=== PATIENT | male | born 1990 | race African-American/Black ===

== ENCOUNTER 2017-07-21 16:15 | Emergency (ER) | payer OTHER ==
[~2017-07-21] VITALS: Ht 152.4 cm; Wt 46.0 kg
[~2017-07-21 16:15] MED LIST: CLONIDINE; FLUVOXAMINE; LAMOTRIGINE
[2017-07-21] MEDS ORDERED: TETANUS, DIPHTHERIA, PERTUSSIS VAC/PF 0.5ML (>7YR OLD) IM ONE (19:00)
[2017-07-21 23:00] VITALS: BP 116/63
== END 2017-07-21 23:09 | disposition home or self-care (01) ==
LOC: ER 16:41
DX: S53.124A Posterior dislocation of right ulnohumeral joint, initial encounter (principal); J45.909 Unspecified asthma, uncomplicated; F72 Severe intellectual disabilities; G40.909 Epilepsy, unspecified, not intractable, without status epilepticus; Z88.0 Allergy status to penicillin; X58.XXXA Exposure to other specified factors, initial encounter; Y93.89 Activity, other specified; Y92.89 Other specified places as the place of occurrence of the external cause; Y99.8 Other external cause status
CPT/HCPCS: 73070; 90471; 90715; 99284; Z7610

== ENCOUNTER 2017-09-24 13:53 | Emergency (ER) | payer OTHER ==
[~2017-09-24] VITALS: Ht 152.4 cm; Wt 50.0 kg
[~2017-09-24 13:53] MED LIST changes: -FLUVOXAMINE
[2017-09-24 14:47] VITALS: BP 120/75
== END 2017-09-24 18:58 | disposition home or self-care (01) ==
LOC: ER 15:15
DX: S50.311A Abrasion of right elbow, initial encounter (principal); F79 Unspecified intellectual disabilities; G80.9 Cerebral palsy, unspecified; J45.909 Unspecified asthma, uncomplicated; R56.9 Unspecified convulsions; L72.0 Epidermal cyst; Z88.0 Allergy status to penicillin
CPT/HCPCS: 99281

== ENCOUNTER 2019-01-10 09:51 | Inpatient (IN) | payer OTHER ==
[~2019-01-10] VITALS: Ht 147.3 cm; Wt 49.0 kg
[~2019-01-10 09:51] MED LIST changes: -LAMOTRIGINE; +LAMOTRIGINE GT
[2019-01-10 11:00] LABS: BASOPHILS % 0.3 % (0.0-2.0); LYMPHOCYTES % 11.6 % (20.0-50.0); MEAN CORPUSCULAR HEMOGLOBIN 31.2 pg (28.0-32.0); MEAN CORPUSCULAR VOLUME 99.9 fL (80.0-94.0); MEAN PLATELET VOLUME 12.1 fl (7.4-10.4); MONOCYTES % 8.8 % (2.0-8.0); NEUTROPHILS % 79.3 % (40.0-76.0); PLATELET 179 x1000/uL (130-400); RED BLOOD CELL COUNT 1.26 mill/uL (4.7-6.1); RED CELL DISTRIBUTION WIDTH 14.4 % (11.6-14.6)
[2019-01-10 11:08] LABS: HEMOGLOBIN. 3.9 g/dL (14.0-18.0); INR 1.2
[2019-01-10 11:09] LABS: HEMATOCRIT. 12.6 % (42.0-52.0)
[2019-01-10] MEDS ORDERED: PANTOPRAZOLE SODIUM 40 MG/VIAL IV ONE (11:30)
[2019-01-10] MEDS ORDERED: PANTOPRAZOLE 80 MG in SODIUM CHLORIDE 0.9% 100 ML IV SCH (11:30)
[2019-01-10] MEDS ORDERED: GUAIFENESIN 200MG/10ML SUGAR FREE UDC PO PRN (11:45)
[2019-01-10] MEDS ORDERED: ACETAMINOPHEN 325MG TABLET PO PRN (11:45)
[2019-01-10] MEDS ORDERED: CLONIDINE 0.1MG TABLET PO PRN (11:45)
[2019-01-10] MEDS ORDERED: MAGNESIUM/ALUMINUM HYDROXIDE/SIMETHICONE 30ML UDC PO PRN (11:45)
[2019-01-10] MEDS ORDERED: HYDROCODONE/ACETAMINOPHEN 5/325MG TABLET PO PRN (11:45)
[2019-01-10] MEDS ORDERED: ONDANSETRON HCL 4MG/2ML INJ IV PRN (11:45)
[2019-01-10] MEDS ORDERED: LORAZEPAM 2MG/ML CPJ IV PRN (11:45)
[2019-01-10] MEDS ORDERED: DIPHENHYDRAMINE 50MG/ML VIAL IV PRN (11:45)
[2019-01-10] MEDS ORDERED: NA PHOS,M-B/NA PHOS,DI-BA ENEMA 118ML PR PRN (11:45)
[2019-01-10] MEDS ORDERED: IPRATROPIUM/ALBUTEROL 0.5-3(2.5)MG/3ML NEB INH PRN (11:45)
[2019-01-10] MEDS ORDERED: DOCUSATE SODIUM 100MG CAPSULE PO PRN (11:45)
[2019-01-10] MEDS ORDERED: HYDROMORPHONE HCL/PF 2MG/ML CPJ IV PRN (11:45)
[2019-01-10] MEDS: PANTOPRAZOLE 80 MG in SODIUM CHLORIDE 0.9% 100 ML IV SCH ×2 (11:50→23:29)
[2019-01-10 14:30] LABS: CLARITY URINE CLEAR (CLEAR); COLOR URINE YELLOW (YELLOW); KETONES URINE NEGATIVE (NEGATIVE); LEUKOCYTE ESTERASE URINE NEGATIVE (NEGATIVE); NITRITE URINE NEGATIVE (NEGATIVE); OCCULT BLOOD URINE NEGATIVE (NEGATIVE); PH URINE 6.5 (4.5-8.0); PROTEIN URINE NEGATIVE (NEGATIVE)
[2019-01-10] MEDS: DEXT 5%/0.45% NACL 1000ML 1,000 ML IV SCH (15:22)
[2019-01-10 18:26] VITALS: BP 124/66
[2019-01-10 20:00] VITALS: BP 115/55
[2019-01-10] MEDS ORDERED: LAM1 PO (20:21)
[2019-01-10 20:24] LABS: HEMATOCRIT 16.4 % (42.0-52.0); HEMOGLOBIN 5.2 g/dL (14.0-18.0)
[2019-01-10 20:28] LABS: CHLORIDE 115 mEq/L (98-107)
[2019-01-10] MEDS: LAMOTRIGINE 100MG TABLET PO SCH (20:55)
[2019-01-10 22:00] VITALS: BP_SYST 106; BP_SYST 114; BP_DIAS 50; BP_DIAS 57
[2019-01-10 22:15] VITALS: BP 106/57
[2019-01-10 23:15] VITALS: BP 97/63
[2019-01-11] VITALS (20 sets, daily range): BP systolic 72–117; BP diastolic 38–58
[2019-01-11] MEDS: DEXT 5%/0.45% NACL 1000ML 1,000 ML IV SCH ×3 (01:02→17:28)
[2019-01-11 07:14] LABS: BASOPHILS % 0.4 % (0.0-2.0); CHLORIDE 115 mEq/L (98-107); LYMPHOCYTES % 32.5 % (20.0-50.0); MEAN CORPUSCULAR HEMOGLOBIN 30.4 pg (28.0-32.0); MEAN PLATELET VOLUME 12.4 fl (7.4-10.4); MONOCYTES % 10.9 % (2.0-8.0); NEUTROPHILS % 55.2 % (40.0-76.0); PLATELET 143 x1000/uL (130-400); RED BLOOD CELL COUNT 2.09 mill/uL (4.7-6.1); RED CELL DISTRIBUTION WIDTH 14.4 % (11.6-14.6)
[2019-01-11 07:26] LABS: HEMATOCRIT. 19.6 % (42.0-52.0); HEMOGLOBIN. 6.3 g/dL (14.0-18.0)
[2019-01-11 07:35] LABS: LDL CHOLESTEROL 50 mg/dL (5-100)
[2019-01-11 07:36] LABS: HDL CHOLESTEROL 20 mg/dL (40-59)
[2019-01-11] MEDS ORDERED: PANTOPRAZOLE 80 MG in SODIUM CHLORIDE 0.9% 100 ML IV SCH (07:45)
[2019-01-11] MEDS: LAMOTRIGINE 100MG TABLET PO SCH ×2 (09:28→17:20)
[2019-01-11] MEDS: PANTOPRAZOLE 80 MG in SODIUM CHLORIDE 0.9% 100 ML IV SCH (18:18)
[2019-01-12] VITALS (12 sets, daily range): BP systolic 90–119; BP diastolic 35–61
[2019-01-12] MEDS: PANTOPRAZOLE 80 MG in SODIUM CHLORIDE 0.9% 100 ML IV SCH ×2 (04:58→15:47)
[2019-01-12 07:00] LABS: BASOPHILS % 0.5 % (0.0-2.0); HEMATOCRIT. 22.7 % (42.0-52.0); HEMOGLOBIN. 7.6 g/dL (14.0-18.0); LYMPHOCYTES % 32.3 % (20.0-50.0); MEAN CORPUSCULAR VOLUME 92.4 fL (80.0-94.0); MEAN PLATELET VOLUME 12.4 fl (7.4-10.4); MONOCYTES % 9.1 % (2.0-8.0); NEUTROPHILS % 56.1 % (40.0-76.0); PLATELET 160 x1000/uL (130-400); RED BLOOD CELL COUNT 2.45 mill/uL (4.7-6.1); RED CELL DISTRIBUTION WIDTH 14.7 % (11.6-14.6)
[2019-01-12 07:06] LABS: CHLORIDE 114 mEq/L (98-107)
[2019-01-12] MEDS: DEXT 5%/0.45% NACL 1000ML 1,000 ML IV SCH ×3 (07:58→21:52)
[2019-01-12] MEDS: LAMOTRIGINE 100MG TABLET PO SCH ×2 (08:07→18:29)
[2019-01-13] VITALS (12 sets, daily range): BP systolic 92–116; BP diastolic 30–82
[2019-01-13] MEDS: PANTOPRAZOLE 80 MG in SODIUM CHLORIDE 0.9% 100 ML IV SCH ×2 (01:59→10:48)
[2019-01-13] MEDS: DEXT 5%/0.45% NACL 1000ML 1,000 ML IV SCH ×2 (05:38→10:49)
[2019-01-13 06:46] LABS: BASOPHILS % 0.3 % (0.0-2.0); EOSINOPHILS % 2.8 % (0.0-5.0); HEMATOCRIT. 23.5 % (42.0-52.0); HEMOGLOBIN. 7.8 g/dL (14.0-18.0); LYMPHOCYTES % 31.7 % (20.0-50.0); MEAN CORPUSCULAR HEMOGLOBIN 31.2 pg (28.0-32.0); MEAN CORPUSCULAR VOLUME 93.5 fL (80.0-94.0); MEAN PLATELET VOLUME 11.6 fl (7.4-10.4); MONOCYTES % 8.8 % (2.0-8.0); NEUTROPHILS % 56.4 % (40.0-76.0); PLATELET 190 x1000/uL (130-400); RED BLOOD CELL COUNT 2.51 mill/uL (4.7-6.1); RED CELL DISTRIBUTION WIDTH 14.8 % (11.6-14.6)
[2019-01-13 07:42] LABS: CHLORIDE 111 mEq/L (98-107)
[2019-01-13] MEDS: LAMOTRIGINE 100MG TABLET PO SCH ×2 (09:12→16:23)
[2019-01-13] MEDS ORDERED: POTASSIUM CHLORIDE 20MEQ TABLET SR PO NR (11:45)
[2019-01-13] MEDS ORDERED: POTASSIUM CHLORIDE 20MEQ/PACKET PO NR (12:30)
[2019-01-13] MEDS ORDERED: PANTOPRAZOLE 40MG DR TABLET PO SCH (21:00)
[2019-01-13] MEDS ORDERED: LANSOPRAZOLE 30MG DR CAPSULE GT SCH (21:00)
[2019-01-14] VITALS (13 sets, daily range): BP systolic 89–148; BP diastolic 43–97
[2019-01-14 06:38] LABS: PARTIAL THROMBOPLASTIN TIME 24.7 sec (23.4-31.0); PROTHROMBIN TIME 10.6 sec (9.6-11.0)
[2019-01-14 06:49] LABS: BASOPHILS % 0.5 % (0.0-2.0); EOSINOPHILS % 3.2 % (0.0-5.0); HEMATOCRIT. 26.5 % (42.0-52.0); LYMPHOCYTES % 33.5 % (20.0-50.0); MEAN CORPUSCULAR VOLUME 91.6 fL (80.0-94.0); MEAN PLATELET VOLUME 11.6 fl (7.4-10.4); MONOCYTES % 10.2 % (2.0-8.0); NEUTROPHILS % 52.6 % (40.0-76.0); PLATELET 234 x1000/uL (130-400); RED BLOOD CELL COUNT 2.89 mill/uL (4.7-6.1); RED CELL DISTRIBUTION WIDTH 14.8 % (11.6-14.6)
[2019-01-14 07:14] LABS: CHLORIDE 113 mEq/L (98-107)
[2019-01-14] MEDS ORDERED: SIMETHICONE 40 MG/0.6 ML 30ML ONE (11:18)
[2019-01-14] MEDS ORDERED: MIDAZOLAM HCL 5 MG/5 ML VIAL IV PRN (11:38)
[2019-01-14] MEDS ORDERED: FENTANYL CITRATE/PF 50MCG/ML 2ML VIAL ONE (11:38)
[2019-01-14] MEDS ORDERED: MIDAZOLAM HCL 5 MG/5 ML VIAL ONE (11:38)
[2019-01-14] MEDS ORDERED: FENTANYL CITRATE/PF 50MCG/ML 2ML VIAL IV PRN (11:39)
[2019-01-14] MEDS ORDERED: BACTERIOSTATIC SODIUM CHLORIDE 0.9% 30ML VIAL IJ ONE (15:00)
[2019-01-14] MEDS: SUCRALFATE 1 G/10 ML UDC GT SCH ×3 (15:23→23:53)
[2019-01-14] MEDS: LAMOTRIGINE 100MG TABLET PO SCH ×2 (15:23→17:00)
[2019-01-14] MEDS: DEXT 5%/0.45% NACL 1000ML 1,000 ML IV SCH ×2 (15:23→22:16)
[2019-01-14] MEDS: PANTOPRAZOLE SODIUM 40 MG/VIAL IV SCH (19:14)
[2019-01-15] VITALS (19 sets, daily range): BP systolic 91–124; BP diastolic 25–71
[2019-01-15] MEDS: SUCRALFATE 1 G/10 ML UDC GT SCH ×3 (05:43→17:23)
[2019-01-15] MEDS: PANTOPRAZOLE SODIUM 40 MG/VIAL IV SCH ×2 (05:43→17:23)
[2019-01-15 07:48] LABS: BASOPHILS % 0.5 % (0.0-2.0); EOSINOPHILS % 4.2 % (0.0-5.0); LYMPHOCYTES % 27.7 % (20.0-50.0); MEAN CORPUSCULAR HEMOGLOBIN 30.1 pg (28.0-32.0); MEAN CORPUSCULAR VOLUME 91.7 fL (80.0-94.0); MEAN PLATELET VOLUME 11.8 fl (7.4-10.4); NEUTROPHILS % 55.6 % (40.0-76.0); PLATELET 211 x1000/uL (130-400); RED BLOOD CELL COUNT 2.32 mill/uL (4.7-6.1); RED CELL DISTRIBUTION WIDTH 14.2 % (11.6-14.6)
[2019-01-15 07:50] LABS: CHLORIDE 115 mEq/L (98-107)
[2019-01-15 07:56] LABS: HEMATOCRIT. 21.2 % (42.0-52.0)
[2019-01-15 07:58] LABS: TOTAL IRON BINDING CAPACITY 211 ug/dL (250-450)
[2019-01-15 07:59] LABS: FOLIC ACID (FOLATE) SERUM >20 ng/mL ng/mL (>5.38)
[2019-01-15 08:11] LABS: VITAMIN B12 SERUM 1734 pg/mL (211-911)
[2019-01-15] MEDS: LAMOTRIGINE 100MG TABLET PO SCH ×2 (08:37→17:23)
[2019-01-15] MEDS ORDERED: IRON SUCROSE COMPLEX 100 MG/5 ML ML IV SCH (10:00)
[2019-01-15] MEDS ORDERED: POTASSIUM CHLORIDE 20MEQ TABLET SR PO NR (11:00)
[2019-01-15] MEDS: DEXT 5%/0.45% NACL KCL 20MEQ/L 1,000 ML IV SCH ×2 (11:07→19:00)
[2019-01-15 12:08] LABS: FERRITIN 18 ng/mL (22-322)
[2019-01-15 20:45] LABS: HEMOGLOBIN 9.8 g/dL (14.0-18.0)
[2019-01-15 20:53] LABS: INR 1.1; PROTHROMBIN TIME 10.9 sec (9.6-11.0)
== END 2019-01-15 20:52 | disposition short-term general hospital (02) | DRG 244 ==
LOC: ER 09:51 → 3WST 11:42 → EDBEDREQ 11:47 → EDBEDREQTM 11:47 → EDBEDREQSVC 11:47 → ENRESERV 15:28
PROVIDERS: ADMIT Internal Medicine; ATTEND Internal Medicine
PROC: 30233N1 Transfusion of Nonautologous Red Blood Cells into Peripheral Vein, Percutaneous Approach (ICD-10-PCS; 2019-01-10)
PROC: 0DB68ZX Excision of Stomach, Via Natural or Artificial Opening Endoscopic, Diagnostic (ICD-10-PCS; principal; 2019-01-14)
PROC: 02HV33Z Insertion of Infusion Device into Superior Vena Cava, Percutaneous Approach (ICD-10-PCS; 2019-01-14)
PROC: B5181ZA Fluoroscopy of Superior Vena Cava using Low Osmolar Contrast, Guidance (ICD-10-PCS; 2019-01-14)
PROC: B548ZZA Ultrasonography of Superior Vena Cava, Guidance (ICD-10-PCS; 2019-01-14)
DX: K57.90 Diverticulosis of intestine, part unspecified, without perforation or abscess without bleeding (principal); J96.00 Acute respiratory failure, unspecified whether with hypoxia or hypercapnia; E87.0 Hyperosmolality and hypernatremia; D62 Acute posthemorrhagic anemia; Z93.1 Gastrostomy status; E86.0 Dehydration; I10 Essential (primary) hypertension; G80.9 Cerebral palsy, unspecified; G40.909 Epilepsy, unspecified, not intractable, without status epilepticus; R00.0 Tachycardia, unspecified; E87.6 Hypokalemia; J45.909 Unspecified asthma, uncomplicated; Z79.899 Other long term (current) drug therapy; Z88.0 Allergy status to penicillin; K29.70 Gastritis, unspecified, without bleeding
CPT/HCPCS: 36415; 36569; 36573; 71045; 80048; 80061; 82607; 82728; 82746; 83540; 83550; 83735; 84484; 85014; 85018; 85044; 86850; 86900; 86920; 88305; 88312; 88313; 93005; 93306; 93970; 96374; 99152; 99285; C1725; C1893; C9113; J2250; J3010; J3490; J7040; J7050; P9016; G0500

== ENCOUNTER 2019-06-02 10:03 | Emergency (ER) | payer OTHER ==
[~2019-06-02] VITALS: Ht 167.6 cm; Wt 70.0 kg
[~2019-06-02 10:03] MED LIST changes: +LAM1 PO; -LAMOTRIGINE GT
[2019-06-02] MEDS ORDERED: SODIUM CHLORIDE 0.9% 1,000 ML IV ONE ×2 (10:30→13:30)
[2019-06-02 11:07] LABS: HEMATOCRIT. 38.1 % (42.0-52.0); HEMOGLOBIN. 11.8 g/dL (14.0-18.0); MEAN CORPUSCULAR HEMOGLOBIN 21.6 pg (28.0-32.0); MEAN CORPUSCULAR VOLUME 69.7 fL (80.0-94.0); MEAN PLATELET VOLUME 11.5 fl (7.4-10.4); PLATELET 184 x1000/uL (130-400); RED BLOOD CELL COUNT 5.46 mill/uL (4.7-6.1); RED CELL DISTRIBUTION WIDTH 21.8 % (11.6-14.6)
[2019-06-02 11:14] LABS: CHLORIDE 105 mEq/L (98-107)
[2019-06-02 11:19] LABS: ETHANOL BLOOD < 10 mg/dL
[2019-06-02 11:23] LABS: CREATINE KINASE 201 IU/L (39-308); CREATINE KINASE MB FRACTION 1.7 ng/mL (0.5-3.6)
[2019-06-02 11:30] LABS: CARBAMAZEPINE < 0.5 ug/mL (4-12); VALPROIC ACID < 3.0 ug/mL (50-100)
[2019-06-02 11:31] LABS: PHENOBARBITAL < 2.1 ug/mL (15.0-40.0)
[2019-06-02 12:43] LABS: *AMPHETAMINES SCREEN URINE NEGATIVE (NEGATIVE); *BARBITURATES SCREEN URINE NEGATIVE (NEGATIVE); *BENZODIAZEPINES SCREEN URINE NEGATIVE (NEGATIVE)
[2019-06-02 12:44] LABS: *COCAINE SCREEN URINE NEGATIVE (NEGATIVE); CANNABINOID URINE SCREEN NEGATIVE (NEGATIVE); METHADONE URINE SCREEN NEGATIVE (NEGATIVE); OPIATES URINE SCREEN NEGATIVE (NEGATIVE); PHENCYCLIDINE URINE SCREEN NEGATIVE (NEGATIVE)
[2019-06-02 12:49] LABS: PLATELET ESTIMATE NORMAL
[2019-06-02 15:39] VITALS: BP 105/62
== END 2019-06-02 14:40 | disposition home or self-care (01) ==
LOC: ER 10:03
DX: R56.9 Unspecified convulsions (principal); E86.0 Dehydration; G93.40 Encephalopathy, unspecified; J45.909 Unspecified asthma, uncomplicated; Z88.0 Allergy status to penicillin
CPT/HCPCS: 36415; 70450; 80053; 80156; 80165; 80184; 80185; 80305; 80320; 82550; 82553; 83690; 84443; 84484; 85025; 93005; 96360; 99284; J7030; G0480

== ENCOUNTER 2019-10-25 11:35 | Emergency (ER) | payer OTHER ==
[~2019-10-25] VITALS: Ht 172.7 cm; Wt 75.0 kg
[2019-10-25 12:34] VITALS: BP 130/71
== END 2019-10-25 12:45 | disposition home or self-care (01) ==
LOC: ER 11:35
DX: R45.6 Violent behavior (principal); R45.4 Irritability and anger; Z99.3 Dependence on wheelchair; Z88.0 Allergy status to penicillin; Z86.69 Personal history of other diseases of the nervous system and sense organs
CPT/HCPCS: 99284